=== PATIENT | male | born 1950 | race Caucasian/White ===

== ENCOUNTER 2023-03-28 22:08 | Emergency (ER) | payer OTHER ==
[2023-03-28 22:15] VITALS: BP 131/81; PULSE 95; RESP 20; TEMP 98.2; BMI 31.0
== END 2023-03-29 00:19 | disposition home or self-care (01) ==
LOC: JER 22:08
PROC: 0T9B70Z Drainage of Bladder with Drainage Device, Via Natural or Artificial Opening (ICD-10-PCS; principal; 2023-03-29)
DX: T83.9XXA Unspecified complication of genitourinary prosthetic device, implant and graft, initial encounter (principal); Y84.6 Urinary catheterization as the cause of abnormal reaction of the patient, or of later complication, without mention of misadventure at the time of the procedure
CPT/HCPCS: 99283-25

== ENCOUNTER 2023-03-30 04:18 | Day surgery (SDC) | payer OTHER ==
[2023-03-29 10:22] VITALS: BMI 31.3
[2023-03-30] MEDS ORDERED: PROPOFOL 20 ML ONE ×2 (12:06→13:05)
[2023-03-30] MEDS ORDERED: SEVOFLURANE 250 ML BTL ONE (12:07)
[2023-03-30] MEDS ORDERED: LIDOCAINE HCL/PF 2% SDV 5ML VIAL ONE (12:08)
[2023-03-30] MEDS ORDERED: ONDANSETRON 4 MG/2 ML VIAL ONE (12:08)
[2023-03-30] MEDS ORDERED: ceFAZolin SODIUM 1 GM VIAL ONE (12:08)
[2023-03-30] MEDS ORDERED: DEXAMETHASONE SOD PHOSPHATE 4 MG/1 ML VIAL ONE (12:08)
[2023-03-30] MEDS ORDERED: ceFAZolin SODIUM 1 GM VIAL IVPB ONE (12:42)
[2023-03-30] MEDS ORDERED: oxyCODONE HCL 5 MG TABLET PO PRN (14:10)
[2023-03-30] MEDS ORDERED: ONDANSETRON 4 MG/2 ML VIAL IVPUSH PRN (14:10)
[2023-03-30] MEDS ORDERED: LACTATED RINGERS SOLUTION 1,000 ML IV SCH (14:15)
[2023-03-30 16:03] VITALS: PULSE 84; RESP 18
[2023-03-30 17:47] VITALS: BP 156/86; TEMP 97.8
== END 2023-03-30 05:10 | disposition home or self-care (01) ==
LOC: JASU-SURG 04:18
PROVIDERS: ATTEND Urology
PROC: 0VT08ZZ Resection of Prostate, Via Natural or Artificial Opening Endoscopic (ICD-10-PCS; 2023-03-30)
PROC: 0TCB8ZZ Extirpation of Matter from Bladder, Via Natural or Artificial Opening Endoscopic (ICD-10-PCS; principal; 2023-03-30 12:00)
DX: N21.0 Calculus in bladder (principal); N40.0 Benign prostatic hyperplasia without lower urinary tract symptoms
CPT/HCPCS: 36415; 82360; 82962; 88300-TC; 88305-TC; 94760